=== PATIENT | female | born 1960 | race Caucasian/White ===

== ENCOUNTER 2021-03-04 16:23 | Emergency (ER) | payer OTHER ==
[~2021-03-04] VITALS: Ht 160 cm; Wt 90.0 kg
--- NOTE | 2021-03-04 16:33 | NUR ---
PT BIB EMS FOR RIGHT KNEE AND ANKLE PAIN. PT WAS GETTING INTO A SALAS AT THE [facility] AND HEARD A "POP AND FELT IT ON THE INSIDE OF HER RIGHT KNEE". PT ALSO CO OF RIGHT ANKLE PAIN. DENIES HITTING HEAD. PT RESTING IN [facility]. 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
--- NOTE | 2021-03-04 16:42 | NUR ---
ERP AT BS. PT REPORTS SHE HEARD "POP" IN KNEE WHEN SHE FELL. HR 120s.
--- NOTE | 2021-03-04 16:59 | NUR ---
PT TO IMAGING VIA [facility].
[2021-03-04] MEDS ORDERED: HYDROcodone/APAP 5/325 TABLET ONE (17:24)
--- NOTE | 2021-03-04 17:32 | NUR ---
PT C/O INCREASED PAIN TO R KNEE AFTER XR. ERP NOTIFIED, MEDICATED WITH [facility] PER ORDERS.
[2021-03-04 17:57] VITALS: BP 172/81
[2021-03-04] MEDS ORDERED: HYDROcodone/APAP 5/325 TABLET PO ONE (18:00)
--- NOTE | 2021-03-04 18:15 | NUR ---
ERP AT FOR RECHECK.
--- NOTE | 2021-03-04 18:39 | NUR ---
DARELL WRAP APPLIED TO PT'S R KNEE. D/C INSTRUCTIONS, MEDS & F/U APPT RV'WD WITH PT, SHE VERBALIZES UNDERSTANDING. [employer] TEACHING PROVIDED. RX GIVEN X2. ASSISTED PT OUT OF ED VIA WC WITH .
== END 2021-03-04 18:40 | disposition home or self-care (01) ==
LOC: EDBD 16:23 → ED 18:11
DX: S83.92XA Sprain of unspecified site of left knee, initial encounter (principal); S83.91XA Sprain of unspecified site of right knee, initial encounter; M25.571 Pain in right ankle and joints of right foot; I10 Essential (primary) hypertension; X58.XXXA Exposure to other specified factors, initial encounter; Y93.89 Activity, other specified; Y92.89 Other specified places as the place of occurrence of the external cause; Y99.8 Other external cause status
CPT/HCPCS: 99284